=== PATIENT | male | born 1965 | race African-American/Black ===

== ENCOUNTER 2020-12-26 13:40 | Inpatient (IN) | payer OTHER ==
[2020-12-26] MEDS ORDERED: SODIUM CHLORIDE 0.9% 500 ML INFUS.BAG IV ONE ×2 (14:19→16:25)
[2020-12-26 15:41] LABS: BASO % 1.3 % (0-2.0); EOS % 1.5 % (0-4.5); HEMOGLOBIN 14.2 GM/dL (11.7-16.9); LYMPH % 27.2 % (8-40); MCH 30.5 pg (25.7-33.7); MCHC 34.8 g/dl (32.0-35.9); MEAN CELL VOLUME 87.8 fl (80-96); MEAN PLT VOLUME 10.6 fl (7.5-11.1); MONO % 9.7 % (3.8-10.2); NEUT % 60.3 % (42.8-82.8); PLATELET COUNT 157 10^3/uL (134-434); RBC 4.66 M/mm3 (4.00-5.60); RDW 12.8 % (11.9-15.9); WHITE BLOOD COUNT 6.8 K/mm3 (4.0-10.0)
[2020-12-26 15:56] LABS: CHLORIDE 93 mmol/L (98-107); SODIUM 129 mmol/L (136-145)
[2020-12-26 15:58] LABS: CALCIUM 9.8 mg/dL (8.5-10.1)
[2020-12-26 15:59] LABS: ALBUMIN 4.1 g/dl (3.4-5.0); ANION GAP 11 MMOL/L (8-16); BLOOD UREA NITROGEN 23.8 mg/dL (7-18); CO2 24 mmol/L (21-32)
[2020-12-26 16:02] LABS: CREATININE 1.6 mg/dL (0.55-1.3); SGOT/AST 12 U/L (15-37); SGPT/ALT 31 U/L (13-61)
[2020-12-26 16:04] LABS: TOT PROT 7.9 g/dl (6.4-8.2)
[2020-12-26 16:05] LABS: ALK PHOS 79 U/L (45-117)
[2020-12-26 16:07] LABS: GLUCOSE,RANDOM 708 mg/dL (74-106)
[2020-12-26] MEDS ORDERED: INSULIN REGULAR HUMAN 100 UNITS/ML *VIAL IVPUSH ONE (17:11)
[2020-12-27] MEDS: SODIUM CHLORIDE 0.45% 1,000 ML IV SCH ×2 (01:10→22:44)
[2020-12-27 03:33] VITALS: BMI 35.4
[2020-12-27] MEDS: INSULIN SLIDING SCALE (NOVOLOG) 1 VIAL SQ SCH ×4 (06:37→21:36)
[2020-12-27 07:34] LABS: BASO % 1.2 % (0-2.0); EOS % 2.4 % (0-4.5); HEMATOCRIT 34.7 % (35.4-49); HEMOGLOBIN 12.4 GM/dL (11.7-16.9); LYMPH % 40.7 % (8-40); MCH 31.1 pg (25.7-33.7); MCHC 35.6 g/dl (32.0-35.9); MEAN CELL VOLUME 87.4 fl (80-96); MONO % 7.9 % (3.8-10.2); NEUT % 47.8 % (42.8-82.8); PLATELET COUNT 122 10^3/uL (134-434); RBC 3.97 M/mm3 (4.00-5.60); RDW 12.8 % (11.9-15.9); WHITE BLOOD COUNT 5.9 K/mm3 (4.0-10.0)
[2020-12-27 08:01] LABS: CALCIUM 8.8 mg/dL (8.5-10.1)
[2020-12-27 08:02] LABS: ALBUMIN 3.4 g/dl (3.4-5.0); BLOOD UREA NITROGEN 15.4 mg/dL (7-18)
[2020-12-27 08:07] LABS: BILIRUBIN,TOTAL 0.8 mg/dL (0.2-1); TOT PROT 6.5 g/dl (6.4-8.2)
[2020-12-27] MEDS: ENOXAPARIN NA (PORCINE) 40 MG/0.4 ML DISP.SYRIN SQ SCH (10:48)
[2020-12-27] MEDS ORDERED: ACETAMINOPHEN 325 MG TABLET (FP) PO ONE (13:13)
[2020-12-27] MEDS ORDERED: INSULIN (LEVEMIR) 100 UNITS/ML UNITS SQ ONE (18:04)
[2020-12-27] MEDS: INSULIN (LEVEMIR) 100 UNITS/ML UNITS SQ SCH (21:36)
[2020-12-28] MEDS: INSULIN (LEVEMIR) 100 UNITS/ML UNITS SQ SCH ×2 (06:39→21:58)
[2020-12-28] MEDS: INSULIN SLIDING SCALE (NOVOLOG) 1 VIAL SQ SCH ×4 (06:41→21:58)
[2020-12-28] MEDS: INSULIN (NOVOLOG MIX 70/30) 100 UNITS/ML MDV SQ SCH ×2 (06:42→18:11)
[2020-12-28] MEDS ORDERED: INSULIN (LEVEMIR) 100 UNITS/ML UNITS SQ ONE (06:49)
[2020-12-28] MEDS ORDERED: INSULIN (NOVOLOG MIX 70/30) 100 UNITS/ML MDV SQ ONE (06:49)
[2020-12-28] MEDS ORDERED: INSULIN (NOVOLOG) ASPART 100 UNITS/ML 10ML VIAL ONE (06:49)
[2020-12-28] MEDS: PROPYLTHIOURACIL 50 MG TABLET (UD) PO SCH (09:34)
[2020-12-28] MEDS: METOPROLOL TARTRATE 25 MG TABLET (FP) PO SCH (09:34)
[2020-12-28] MEDS: ENOXAPARIN NA (PORCINE) 40 MG/0.4 ML DISP.SYRIN SQ SCH (09:34)
[2020-12-28] MEDS: SODIUM CHLORIDE 0.45% 1,000 ML IV SCH (22:01)
[2020-12-28] MEDS: ACETAMINOPHEN 325 MG TABLET (FP) PO PRN (22:20)
[2020-12-28] MEDS ORDERED: ZOLPIDEM TARTRATE 5 MG TABLET PO ONE (23:45)
[2020-12-29] MEDS: INSULIN SLIDING SCALE (NOVOLOG) 1 VIAL SQ SCH ×4 (06:33→22:29)
[2020-12-29] MEDS: INSULIN (LEVEMIR) 100 UNITS/ML UNITS SQ SCH (06:43)
[2020-12-29] MEDS: INSULIN (NOVOLOG MIX 70/30) 100 UNITS/ML MDV SQ SCH ×2 (06:43→17:02)
[2020-12-29] MEDS: METOPROLOL TARTRATE 25 MG TABLET (FP) PO SCH (09:52)
[2020-12-29] MEDS: PROPYLTHIOURACIL 50 MG TABLET (UD) PO SCH (09:53)
[2020-12-29] MEDS: ENOXAPARIN NA (PORCINE) 40 MG/0.4 ML DISP.SYRIN SQ SCH (09:53)
[2020-12-29] MEDS ORDERED: INSULIN (NOVOLOG) ASPART 100 UNITS/ML 10ML VIAL ONE ×2 (17:28→21:00)
[2020-12-29] MEDS: ACETAMINOPHEN 325 MG TABLET (FP) PO PRN (17:33)
[2020-12-29] MEDS ORDERED: ZOLPIDEM TARTRATE 5 MG TABLET PO PRN (21:15)
[2020-12-30 06:24] VITALS: TEMP 98.2
[2020-12-30] MEDS: INSULIN SLIDING SCALE (NOVOLOG) 1 VIAL SQ SCH ×2 (06:30→13:04)
[2020-12-30] MEDS: INSULIN (NOVOLOG MIX 70/30) 100 UNITS/ML MDV SQ SCH (06:30)
[2020-12-30] MEDS ORDERED: PT OWN MED DRAWER 7, Y5N ONE (09:33)
[2020-12-30 09:44] VITALS: BP 115/80; PULSE 71
[2020-12-30] MEDS: METOPROLOL TARTRATE 25 MG TABLET (FP) PO SCH (10:13)
[2020-12-30] MEDS: ENOXAPARIN NA (PORCINE) 40 MG/0.4 ML DISP.SYRIN SQ SCH (10:13)
[2020-12-30] MEDS: PROPYLTHIOURACIL 50 MG TABLET (UD) PO SCH (10:18)
== END 2020-12-30 13:58 | disposition home or self-care (01) | DRG 684 ==
LOC: JER 13:40 → JERBED 17:35 → J4W 12-27 00:56
PROVIDERS: ADMIT Internal Medicine; ATTEND Internal Medicine
DX: N17.9 Acute kidney failure, unspecified (principal); E05.00 Thyrotoxicosis with diffuse goiter without thyrotoxic crisis or storm; I10 Essential (primary) hypertension; E86.0 Dehydration; R63.4 Abnormal weight loss; Z68.35 Body mass index [BMI] 35.0-35.9, adult; E11.65 Type 2 diabetes mellitus with hyperglycemia; R53.83 Other fatigue; Z85.46 Personal history of malignant neoplasm of prostate
CPT/HCPCS: 36415; 71046-TC-FY; 76700-TC; 80053; 82962; 83036; 84439; 84443; 85025; 93005; 93010; 99285-25; C9803; U0003; U0005

== ENCOUNTER 2025-03-11 17:03 | Emergency (ER) | payer BC, OTHER ==
[2025-03-11 17:17] VITALS: BP 142/85; PULSE 85; RESP 18; TEMP 98.2; BMI 29.0
[2025-03-11] MEDS ORDERED: KETOROLAC TROMETHAMINE 30 MG/1 ML VIAL ONE (17:35)
[2025-03-11] MEDS ORDERED: LIDOCAINE 4% PATCH TP ONE (17:35)
[2025-03-11] MEDS ORDERED: ACETAMINOPHEN 500 MG TABLET (FP) ONE (17:35)
[2025-03-11] MEDS: KETOROLAC TROMETHAMINE 30 MG/1 ML VIAL IM ONE (17:42)
[2025-03-11] MEDS: LIDOCAINE 4% PATCH TP ONE (17:42)
[2025-03-11] MEDS: ACETAMINOPHEN 500 MG TABLET (FP) PO ONE (17:43)
[2025-03-11 19:36] LABS: HCV DIAGNOSTIC IN-HOUSE W/RFLX NON-REACTIVE (NONREACTIVE)
[2025-03-11 19:37] LABS: HIV INTERPRETATION NEGATIVE (NEGATIVE)
== END 2025-03-11 18:51 | disposition home or self-care (01) ==
LOC: JERFT 17:03
PROC: 3E0233Z Introduction of Anti-inflammatory into Muscle, Percutaneous Approach (ICD-10-PCS; principal; 2025-03-11)
DX: M17.11 Unilateral primary osteoarthritis, right knee (principal)
CPT/HCPCS: 36415; 73562-TC-RT-FY; 86803; 87389; 99284-25